=== PATIENT | female | born 1995 | race Caucasian/White ===

== ENCOUNTER 2017-12-31 18:11 | Emergency (ER) | payer OTHER ==
[2017-12-31 18:49] LABS: KETONE, URINE AUTO RFX NEGATIVE (NEGATIVE); LEUKOCYTE ESTERASE UR AUTO RFX NEGATIVE (NEGATIVE); MUCUS, URINE RFX SMALL (NEGATIVE); NITRITE, URINE AUTO RFX NEGATIVE (NEGATIVE); RBC, URINE AUTO RFX 0 /HPF (0-3); SPECIFIC GRAVITY UR AUTO RFX 1.004 (1.002-1.035); SQUAM EPITHELIAL CELL UR AURFX 0 /HPF (0-6); WBC, URINE AUTO RFX 0 /HPF (0-3)
[2017-12-31 19:19] LABS: BASO % 0.3 % (0.0-1.0); EOS # 0.1 10^3/uL (0.0-0.50); EOS % 0.9 % (0.0-3.0); HEMATOCRIT 38.9 % (36.0-47.0); HEMOGLOBIN 12.7 g/dl (12.0-15.5); IMMATURE GRANULOCYTE % 0.2 % (0-3.0); LYMPH # 1.6 10^3/uL (1.5-6.5); LYMPH % 26.7 % (24.0-44.0); MEAN CORPUSCULAR HEMOGLOBIN 28.3 pg (27.0-33.0); MEAN CORPUSCULAR HGB CONC 32.6 g/dl (32.0-36.5); MEAN CORPUSCULAR VOLUME 86.6 fl (80.0-96.0); MONO # 0.4 10^3/uL (0.0-0.8); MONO % 6.2 % (0.0-5.0); NEUTROPHILS # 3.8 10^3/uL (1.8-7.7); NEUTROPHILS % 65.7 % (36.0-66.0); PLATELET COUNT, AUTOMATED 359 10^3/uL (150-450); RED BLOOD COUNT 4.49 10^6/uL (4.00-5.40); RED CELL DISTRIBUTION WIDTH 13.3 % (11.5-14.5); WHITE BLOOD COUNT 5.8 10^3/uL (4.0-10.0)
[2017-12-31 19:43] LABS: ANION GAP 8 MEQ/L (8-16); BLOOD UREA NITROGEN 8 MG/DL (7-18); CALCIUM LEVEL 8.8 MG/DL (8.5-10.1); CARBON DIOXIDE LEVEL 25 MEQ/L (21-32); CHLORIDE LEVEL 107 MEQ/L (98-107); CREATININE FOR GFR 0.61 MG/DL (0.55-1.30); GLUCOSE, FASTING 97 MG/DL (70-100); HCG, SERUM QUANTITATIVE 388 MIU/ML; POTASSIUM SERUM 3.5 MEQ/L (3.5-5.1); SODIUM LEVEL 140 MEQ/L (136-145)
== END 2017-12-31 21:05 | disposition home or self-care (01) ==
LOC: M ED 18:11
DX: R10.2 Pelvic and perineal pain (principal); N83.201 Unspecified ovarian cyst, right side; Z33.1 Pregnant state, incidental; D64.9 Anemia, unspecified; Z87.42 Personal history of other diseases of the female genital tract
CPT/HCPCS: 76801

== ENCOUNTER → 2018-01-03 | Outpatient (CLI) | payer OTHER ==
[2018-01-03 12:28] LABS: HCG, SERUM QUANTITATIVE 950 MIU/ML
== END ==
LOC: M LAB 10:29
DX: R10.2 Pelvic and perineal pain (principal)
CPT/HCPCS: 84702

== ENCOUNTER 2018-01-08 14:06 | Emergency (ER) | payer OTHER ==
[2018-01-08 15:26] LABS: BASO % 0.4 % (0.0-1.0); EOS # 0.1 10^3/uL (0.0-0.50); EOS % 1.3 % (0.0-3.0); HEMOGLOBIN 11.2 g/dl (12.0-15.5); IMMATURE GRANULOCYTE % 0.2 % (0-3.0); LYMPH # 1.6 10^3/uL (1.5-6.5); MEAN CORPUSCULAR VOLUME 87.5 fl (80.0-96.0); MONO # 0.4 10^3/uL (0.0-0.8); MONO % 6.7 % (0.0-5.0); NEUTROPHILS # 3.2 10^3/uL (1.8-7.7); NEUTROPHILS % 61.4 % (36.0-66.0); PLATELET COUNT, AUTOMATED 313 10^3/uL (150-450); RED CELL DISTRIBUTION WIDTH 13.2 % (11.5-14.5); WHITE BLOOD COUNT 5.2 10^3/uL (4.0-10.0)
[2018-01-08 15:32] LABS: KETONE, URINE AUTO RFX NEGATIVE (NEGATIVE); LEUKOCYTE ESTERASE UR AUTO RFX NEGATIVE (NEGATIVE); MUCUS, URINE RFX SMALL (NEGATIVE); NITRITE, URINE AUTO RFX NEGATIVE (NEGATIVE); RBC, URINE AUTO RFX 55 /HPF (0-3); SPECIFIC GRAVITY UR AUTO RFX 1.019 (1.002-1.035); SQUAM EPITHELIAL CELL UR AURFX 2 /HPF (0-6); WBC, URINE AUTO RFX 3 /HPF (0-3)
[2018-01-08 15:53] LABS: HCG, SERUM QUANTITATIVE 541 MIU/ML
== END 2018-01-08 16:48 | disposition home or self-care (01) ==
LOC: M ED 14:06
DX: O20.0 Threatened abortion (principal); Z3A.00 Weeks of gestation of pregnancy not specified; Z87.42 Personal history of other diseases of the female genital tract
CPT/HCPCS: 76801

== ENCOUNTER 2018-05-29 18:12 | Emergency (ER) | payer OTHER ==
[~2018-05-29] VITALS: Ht 160 cm; Wt 85.0 kg
[2018-05-29 18:13] VITALS: BP 125/67
[2018-05-29] MEDS ORDERED: ACETAMINOPHEN 325 MG TAB PO ONE (18:30)
== END 2018-05-29 19:11 | disposition home or self-care (01) ==
LOC: M ED 18:12
DX: S09.90XA Unspecified injury of head, initial encounter (principal); W22.8XXA Striking against or struck by other objects, initial encounter; Y92.018 Other place in single-family (private) house as the place of occurrence of the external cause

== ENCOUNTER 2018-07-12 15:34 | Outpatient (CLI) | payer OTHER ==
[~2018-07-12] VITALS: Ht 162.6 cm; Wt 90.4 kg
[2018-07-12] MEDS ORDERED: PRENTAB9 PO (16:05)
[2018-07-12 16:08] VITALS: BP 127/74
[2018-07-12 17:29] VITALS: BP 127/70
== END 2018-07-12 17:32 | disposition home or self-care (01) ==
LOC: MERGE 15:34 → M LDO 15:34 → EDBD 15:34 → M LDO 17:32
PROVIDERS: ATTEND Obstetrics & Gynecology
DX: O26.893 Other specified pregnancy related conditions, third trimester (principal); R10.30 Lower abdominal pain, unspecified; O62.2 Other uterine inertia; O47.03 False labor before 37 completed weeks of gestation, third trimester; Z3A.36 36 weeks gestation of pregnancy
CPT/HCPCS: 59025; G0378; G0463

== ENCOUNTER 2018-07-24 18:31 | Outpatient (CLI) | payer OTHER ==
[~2018-07-24] VITALS: Ht 162.6 cm; Wt 90.1 kg
[~2018-07-24 18:31] MED LIST: PRENTAB9 PO
[2018-07-24 18:45] VITALS: BP 119/70
[2018-07-24 19:39] VITALS: BP 124/75
--- NOTE | 2018-07-24 19:51 | IPNPDOC ---
Text Note Date of Service The patient was seen on 07/24/18. NOTE 22 yo at 28+1 weeks gestation presented to L&D with the complaint of a single episode of bright red vaginal bleeding that occurred after shopping this afternoon. She noticed the blood when she went to the bathroom. She did not bleed into her underwear. She denies any pain. She also denies any recent intercourse or anything in the vagina. In addition, she reports some whitish vaginal discharge over the last couple weeks. She denies and leakage of fluid. She endorses excellent movement. Chaperoned by L&D RN Vitals - VSS, afebrile, normotensive, non tachycardic General - AAOX3, sitting up in bed, NAD Abdomen - Gravid uterus, no fundal tenderness Pelvic exam - Normal external female genitalia. Speculum inserted into the vagina. White, chunky discharge noted in the vaginal vault. Swab obtained for microscopy. Cervix visualized and normal in appearance. No bleeding or any blood seen anywhere whatsoever. Speculum removed. Digital exam confirmed cervix cl/thick/high. Bedside TAUS - Viable SIUP. Anterior placenta with no evidence of previa. +gross movement. FHR tracing - Cat I with moderate variability, + 10 X 10 accels, no decels. No ctx. Microscopy: Positive for significant amount of yeast. No evidence of bleeding on exam, though significant yeast infection identified. Cervix closed. Reassuring status. Will treat yeast infection with fluconazole (she declined vaginal therapy). Follow up at next appointment as scheduled. Return to care sooner for any urgent concerns. Patient verbalized understanding and all questions were answered. DO SABA Meek Fishbone, I+O Lois WALTER, I+O Vital Signs Date Time Temp Pulse Resp B/P (MAP) Pulse Ox O2 Delivery O2 Flow Rate FiO2 07/24/18 18:45 98.7 102 119/70 (86) FABIO DAVIS DO Jul 24, 2018 19:51
== END 2018-07-24 19:45 | disposition home or self-care (01) ==
LOC: M LDO 18:31
PROVIDERS: ATTEND Obstetrics & Gynecology
DX: O26.853 Spotting complicating pregnancy, third trimester (principal); O23.599 Infection of other part of genital tract in pregnancy, unspecified trimester; B37.3 Candidiasis of vulva and vagina; Z3A.28 28 weeks gestation of pregnancy
CPT/HCPCS: 76815; G0378; G0463

== ENCOUNTER 2018-08-27 15:46 | Outpatient (CLI) | payer OTHER ==
[~2018-08-27] VITALS: Ht 162.6 cm; Wt 93.9 kg
[2018-08-27 16:14] VITALS: BP 134/88
[2018-08-27] MEDS ORDERED: PROSCAP PO (16:20)
[2018-08-27] MEDS ORDERED: FERR325T3 PO (16:20)
[2018-08-27 17:27] VITALS: BP 122/68
[2018-08-27] MEDS ORDERED: FLUCONAZOLE 50MG TABLET PO ONE (18:00)
[2018-08-27 19:40] LABS: CHLAMYDIA DNA AMPLIFICATION NEGATIVE (NEGATIVE); GC DNA AMPLIFICATION NEGATIVE (NEGATIVE)
== END 2018-08-27 18:15 | disposition home or self-care (01) ==
LOC: M LDO 15:46
PROVIDERS: ATTEND Obstetrics & Gynecology
DX: O26.893 Other specified pregnancy related conditions, third trimester (principal); R51 Headache; R10.2 Pelvic and perineal pain; O47.03 False labor before 37 completed weeks of gestation, third trimester; Z3A.33 33 weeks gestation of pregnancy
CPT/HCPCS: 59025; 87086; 87661; G0378; G0463

== ENCOUNTER 2018-09-26 18:09 | Outpatient (CLI) | payer OTHER ==
[~2018-09-26] VITALS: Ht 162.6 cm; Wt 95.3 kg
[~2018-09-26 18:09] MED LIST changes: +FERR325T3 PO; +PROSCAP PO
[2018-09-26 18:32] VITALS: BP 122/56
[2018-09-26 19:15] VITALS: BP 118/77
[2018-09-26] MEDS ORDERED: ACETAMINOPHEN 325 MG TAB PO ONE (19:30)
[2018-09-27] MEDS ORDERED: MAPA500T2 PO (11:17)
== END 2018-09-26 20:40 | disposition home or self-care (01) ==
LOC: M LDO 18:09
PROVIDERS: ATTEND General Practice
DX: O47.1 False labor at or after 37 completed weeks of gestation (principal); O26.893 Other specified pregnancy related conditions, third trimester; R51 Headache; M54.9 Dorsalgia, unspecified; Z3A.37 37 weeks gestation of pregnancy
CPT/HCPCS: 59025; G0378; G0463

== ENCOUNTER 2018-09-27 10:36 | Outpatient (CLI) | payer OTHER ==
[~2018-09-27] VITALS: Ht 162.6 cm; Wt 94.6 kg
[2018-09-27] MEDS ORDERED: MAPA500T2 PO (11:17)
[2018-09-27 11:23] VITALS: BP 125/83
== END 2018-09-27 13:04 | disposition home or self-care (01) ==
LOC: M LDI 10:36 → M LDO 10:36
PROVIDERS: ATTEND Advanced Practice Midwife
DX: O47.1 False labor at or after 37 completed weeks of gestation (principal); Z3A.37 37 weeks gestation of pregnancy

== ENCOUNTER 2018-09-30 17:02 | Inpatient (IN) | payer OTHER ==
[~2018-09-30] VITALS: Ht 162.6 cm; Wt 97.1 kg
[~2018-09-30 17:02] MED LIST changes: +MAPA500T2 PO
[2018-09-30] MEDS ORDERED: VITA100T59 PO (17:36)
[2018-09-30] MEDS ORDERED: AMPICILLIN SOD 2 GM in APPROPRIATE DILUENT 20 ML IV STA (18:14)
--- NOTE | 2018-09-30 18:38 | HPEPDOC ---
Obstetrical History & Physical General Date of Admission Sep 30, 2018 at 18:15 History of Present Illness 22yo at 37w6d by LMP c/w 8wk US c/o leaking clear fluid since 1611 this afternoon. She has had intermittent contractions since Wednesday, they are not any stronger today or since she began leaking fluid. Denies VB. +FM. Denies fevers, urinary symptoms, bowel symptoms. Has baseline low back pain that continues today. Chief Complaint: LOF, term, Group B Positive Information Provided By: Patient Age: 22 : 2 Term: 0 Pre-term: 0 Abortions: 1 Livin Care Care: Good Care Dating Final EDC: Oct 15, 2018 Final EDC for Daily Update: Oct 15, 2018 Final EDC by: LMP Estimated Date of Confinement: Oct 15, 2018 Antepartum Course Diagnos(e)s Obesity Thickened nuchal fold, cffDNA 46XY Gestational anemia on iron GERD Height (inches): 63 Pre- weight (lbs.): 178 Admission Weight (lbs.): 210 Change in Weight (lbs.): 32 Past Medical History Past Obstetrical History : Past Obstetrical History: Primgravida [employer] History: Spontaneous Past Medical History Medical History 3 herniated discs in lower back Migraines Seasonal allegies Surgical History: Rhinoplasty, [place] teeth Family History Significant Family History: No pertinent family hx Social History Marital Status: Family situation: Spouse/partner home Psychosocial History: No pertinent psych hx * Smoker: non-smoker Alcohol: Denies Drugs: denies Imunizations Tdap status: current Influenza Status: declined Allergies Coded Allergies: acetaminophen (Verified Adverse Reaction, Intermediate, NAUSEA/VOMITING, 08/27/18) hydrocodone (Verified Adverse Reaction, Intermediate, NAUSEA/VOMITING, 08/27/18) Medications Scheduled Ascorbic Acid (Vitamin C) 100 Mg Tablet, 1 TAB PO TID Ferrous Sulfate (Ferrous Sulfate) 325 Mg Tablet.dr, 325 MG PO THREE TIMES DAILY No.137/Iron/Folic Acd ( Vitamin Tablet) 1 Each Tablet, 1 TAB PO DAILY Scheduled PRN Acetaminophen (Mapap) 500 Mg Tablet, 325 MG PO Q6HP PRN for PAIN Physical Examination Physical Examination GENERAL: Alert and oriented times three. BREAST: . ABDOMEN: Gravid and non-tender to touch. FETUS: Is vertex VTX by US. EFW 3800g Pertinent Laboratoy Data Blood Type: A+ RBC Antibody Screen: Negative HIV: Negative Hepatitis B: Negative Rapid Plasma Reagin: Nonreactive Rubella: Immune Varicella: Immune Chlamydia/Gonorrhea: Negative Group B Streptococcus: Positive Glucose Tolerance Test: 106 Anatomy Ultrasound Ultrasound Date: Jun 13, 2018 Placenta Location: Anterior Normal Anatomy: Yes Placenta Previa: No Other Ultrasounds [id number] Information EFW 2192g (68%ile) Steroid Therapy Steroid Therapy: No Vaginal Examination Dilation: 2cm Effacement: 80% Station: -3 Cervical Consistency: Medium Cervical Position: Middle Presentation: Cephalic presentation Position: Vertex (occiput) Assessment Heart Rate (FHR): 150 Variability: Moderate Accelerations: Positive Decelerations: None Tocometer Contractions: Yes Frequency: irregular Duration: less than 60 seconds Strength: palpated as mild Multi-drug resistant Organism: No history of MDRO Assessment/Plan Assessment Catie is a 22-year-old 2 para 0 at 37+6 weeks by LMP c/w 8-week ultrasound. Presents to Labor and Delivery c/o LOF, grossly ruptured as of 1611 on Sep. FHT Cat I with irregular contractions. PNC c/b obesity and thickened nuchal fold with cffDNA 46XY. PMH herniated discs in lumbar spine, migraines. Cephalic by US, EFW 3800g. Discussed r/b/a labor induction given premature ROM at term, she agrees to labor induction Admit to L&D Type and screen, CBC Jackson bulb and pitocin for labor induction CEFM LR @125cc/hr Anticipate Plan Admit and orient. Fabrication Supervisor and consent. Diet: . Group B Streptococcus (GBS) [negative]. Labs and intravenous (IV) per unit protocol. Counseled on Pitocin and induction of labor (IOL). Lactated Ringers (LR): Bolus mL, then at mL/hr. Anticipate [normal spontaneous delivery ()]. C-S as appropriate. GAYE PENDLETON MD Sep 30, 2018 18:38
[2018-09-30] MEDS ORDERED: OXYTOCIN DRIP 30 UNITS in APPROPRIATE DILUENT 1 EA IV SCH (18:45)
[2018-09-30] MEDS: LR 1,000 ML IV SCH (19:06)
[2018-09-30] MEDS ORDERED: LACTATED RINGER'S 1000 ML IV PRN (19:30)
[2018-09-30 19:33] VITALS: BP 115/69
[2018-09-30 19:36] LABS: HEMATOCRIT 29.9 % (36.0-47.0); HEMOGLOBIN 9.5 g/dl (12.0-15.5); MEAN CORPUSCULAR HEMOGLOBIN 25.5 pg (27.0-33.0); MEAN CORPUSCULAR HGB CONC 31.8 g/dl (32.0-36.5); MEAN CORPUSCULAR VOLUME 80.2 fl (80.0-96.0); PLATELET COUNT, AUTOMATED 282 10^3/uL (150-450); RED BLOOD COUNT 3.73 10^6/uL (4.00-5.40); WHITE BLOOD COUNT 9.7 10^3/uL (4.0-10.0)
[2018-09-30] MEDS ORDERED: PROMETHAZINE INJ 25 MG/ML VIAL (J2550) IV PRN (21:30)
[2018-09-30] MEDS ORDERED: BUTORPHANOL 2 MG/ML INJ (J0595) IV ONE (21:30)
[2018-09-30] MEDS ORDERED: AMPICILLIN SOD 1 GM in APPROPRIATE DILUENT 10 ML IV SCH (22:15)
[2018-09-30 22:55] VITALS: BP 108/61
[2018-09-30 23:26] VITALS: BP 119/68
[2018-09-30] MEDS: AMPICILLIN SOD 1 GM in D5W MINI-BAG PLUS 50 ML IV SCH (23:27)
[2018-09-30 23:56] VITALS: BP 121/68
[2018-10-01] VITALS (16 sets, daily range): BP systolic 97–129; BP diastolic 55–82
[2018-10-01] MEDS ORDERED: BUTORPHANOL 2 MG/ML INJ (J0595) IV ONE (01:45)
[2018-10-01] MEDS: LR 1,000 ML IV SCH (02:45)
[2018-10-01] MEDS: AMPICILLIN SOD 1 GM in D5W MINI-BAG PLUS 50 ML IV SCH (03:15)
[2018-10-01] MEDS ORDERED: FENTANYL 2MCG/ML ROPIVACAINE 0.2% IN 0.9% NACL 100ML IVBAG As Ordered ONE (06:09)
[2018-10-01 07:08] LABS: CORD GAS ABE A -5.6; CORD GAS ABE V -4.7; CORD GAS HCO3 A 17.8 MEQ/L; CORD GAS HCO3 V 21.1 MEQ/L; CORD GAS O2 SAT A 73.9 %; CORD GAS O2 SAT V 58.3 %; CORD GAS PCO2 A 30.4 mmHg; CORD GAS PCO2 V 41.6 mmHg; CORD GAS PH A 7.386 UNITS; CORD GAS PH V 7.323 UNITS; CORD GAS PO2 A 30.8 mmHg; CORD GAS PO2 V 25.6 mmHg; CORD GAS SBC A 19.4 MEQ/L; CORD GAS SBC V 19.6 MEQ/L; CORD GAS TCO2 A 18.8 MEQ/L; CORD GAS TCO2 V 22.4 MEQ/L
[2018-10-01] MEDS ORDERED: OXYTOCIN DRIP 30 UNITS in APPROPRIATE DILUENT 1 EA IV SCH (07:32)
[2018-10-01] MEDS ORDERED: METHYLERGONOVINE MALEATE 0.2 MG TAB PO PRN (07:45)
[2018-10-01] MEDS ORDERED: RHOGAM 300 MCG (1500 IU) INJ (J2790) IM SCH (07:45)
[2018-10-01] MEDS ORDERED: MEASLES,MUMPS,RUBELLA VACCINE INJ (MMR-II) (90707) SC SCH (07:45)
[2018-10-01] MEDS ORDERED: LIDOCAINE 1% MDV 20ML VIAL INFIL ONE (07:45)
[2018-10-01] MEDS ORDERED: MOM 30ML SUSPENSION UDC PO PRN (07:45)
[2018-10-01] MEDS ORDERED: ANUSOL HC CREAM 30GM TOP PRN (07:45)
[2018-10-01] MEDS ORDERED: ACETAMINOPHEN 500 MG TAB PO PRN (07:45)
[2018-10-01] MEDS ORDERED: IBUPROFEN 800 MG TAB PO PRN (07:45)
[2018-10-01] MEDS ORDERED: IBUPROFEN 600 MG TAB PO PRN (07:45)
[2018-10-01] MEDS ORDERED: ACETAMINOPHEN TAB 650MG DOSE (2X325MG) PO PRN (07:45)
[2018-10-01] MEDS ORDERED: DIBUCAINE 1% OINTMENT 30GM TOP PRN (07:45)
[2018-10-01] MEDS ORDERED: LIDOCAINE 1% MDV INJ 50 ML VIAL As Ordered ONE (07:48)
[2018-10-01] MEDS ORDERED: LIDOCAINE 1% MDV 20ML VIAL As Ordered ONE (07:50)
[2018-10-01] MEDS: PRENATAL VITAMINS CHEWABLE TABLET PO SCH (08:40)
[2018-10-01] MEDS ORDERED: SLF 3 ML SYR IV PRN (09:00)
[2018-10-01] MEDS: DOCUSATE SODIUM 100 MG CAP PO SCH ×2 (09:21→20:58)
[2018-10-01] MEDS: SLF 3 ML SYR IV SCH ×2 (13:23→21:00)
--- NOTE | 2018-10-01 15:46 | DN ---
DATE OF DELIVERY: 10/01/2018 TIME OF : 0654 hours GENDER: Male. SCORES: 3, 9 and 9. WEIGHT: Was 3680 grams or 8 pounds 2 ounces. LACERATIONS: A partial third degree. ANESTHESIA: None. COUNTS: Five laparotomy sponges accounted for prior to and after delivery. Five sharps removed from the delivery field. Cord gases 7.38, 7.32 with base excesses of -5.60 and -4.7, respectively. COMPLICATIONS: At 3 minutes and 50 seconds shoulder dystocia with a left impacted shoulder. DELIVERY NOTE: On September at 0654 hours, this patient a 22-year-old 1, now para 1 had a vaginal delivery of a live born male infant, scores 3, 9 and 9, weight was 3680 grams or 8 pounds 2 ounces. This was a delivery which was complicated by a 3 minute and 50 second shoulder dystocia with a left impacted shoulder. Upon delivery of the head there was a nuchal cord, which was manually reduced, and gentle downward traction was applied for delivery of the left anterior shoulder, which was on unsuccessful. Rajesh maneuver was then employed as well as suprapubic pressure without alleviation of the left impacted shoulder. I then attempted to deliver the right posterior shoulder, but was unable to flex the elbow, at which time the right posterior shoulder was rotated 180 degrees and was then delivered anteriorly followed by delivery of the now left posterior shoulder and corpus. The cord was clamped times two and was cut and infant was taken over to the warmer where nursing staff awaited. Cord gases were then obtained. Placenta was drained and delivered grossly intact. A premixed bag of 500 mL of normal saline with 30 units of Pitocin was then bolused along with uterine massage until the uterus was firm. On inspection, there was a partial third-degree laceration with visualization of the anal sphincter muscle, which was reapproximated with two interrupted sutures of #0 Vicryl. The remainder of the laceration was repaired with #3-0 Vicryl Rapide. On reinspection the cervix, vagina and perineum was grossly intact and hemostatic. Mom and baby were recovering in stable condition. After delivery, I reviewed the incident with the couple and all questions were answered. The couple has decided to name their son
[2018-10-02] MEDS: SLF 3 ML SYR IV SCH ×2 (06:00→14:24)
[2018-10-02 06:04] VITALS: BP 110/73
[2018-10-02] MEDS: PRENATAL VITAMINS CHEWABLE TABLET PO SCH (07:38)
[2018-10-02] MEDS: DOCUSATE SODIUM 100 MG CAP PO SCH ×2 (07:39→20:28)
--- NOTE | 2018-10-02 08:15 | IPNPDOC ---
Progress Note Date of Service: Oct 02, 2018 Day#: 1 Progress Note SUBJECT: Catie is a 22-year-old 2 now Para 1011 status post spontaneous vaginal delivery (c/b [id number] shoulder dystocia) at 38-0/7 weeks' at approximately 0656 hours on [id number] of a male 8 pounds 2 ounces (3680 grams) with post vaginal laceration (partial 3mLL) and repair, doing well day # 1. She has been ambulating, voiding spontaneously without issue and tolerating regular diet. Breast feeding without issue. Reports lochia is minimal . Patient is ambulating well. OBJECTIVE: VITAL SIGNS: Within normal limits, afebrile. Alert and oriented times three. Abdomen: Fundus firm at U-2. Soft, NTTP. Minimal lochia. ASSESSMENT: Doing well on day 1. Vitals within normal limits, afeb rile, hemodynamically stable with no evidence of infection. PLAN: 1. Discharge to home tomorrow. 2. Tylenol and Motrin for pain. 3. Encourage breast feeding and ambulation. 4. Planning OCPs for contraception. 5. Routine PP visit in 6 weeks in clinic. MD Patrica VS, I&O, 24H, Fishbone Vital Signs/I&O Vital Signs Date Time Temp Pulse Resp B/P (MAP) Pulse Ox O2 Delivery O2 Flow Rate FiO2 10/02/18 06:04 97.9 106 18 110/73 (85) I&O- Last 24 Hours up to 6 AM 10/02/18 06:00 Intake Total 50 ml Output Total 1300 ml Balance -1250 ml GAYE PENDLETON MD Oct 02, 2018 08:15
[2018-10-02 18:39] VITALS: BP 110/66
[2018-10-03 05:44] VITALS: BP 116/64
[2018-10-03] MEDS: PRENATAL VITAMINS CHEWABLE TABLET PO SCH (09:55)
[2018-10-03] MEDS: DOCUSATE SODIUM 100 MG CAP PO SCH (09:55)
[2018-10-03] MEDS ORDERED: DIBU10OI TOP (12:51)
[2018-10-03] MEDS ORDERED: IBUP80TA PO (12:51)
[2018-10-03] MEDS ORDERED: PROC1CRE5 TOP (12:51)
[2018-10-03] MEDS ORDERED: COLA100C5 PO (12:51)
[2018-10-03] MEDS ORDERED: ACET-683 PO (12:51)
--- NOTE | 2018-10-04 10:07 | DSES ---
DATE OF ADMISSION: 09/30/2018 DATE OF DISCHARGE: 10/03/2018 22-year-old 2 now para 1 admitted with contractions, spontaneous rupture of membranes at 37 at 6 weeks of gestation. She had a live male , spontaneous vaginal delivery with a shoulder dystocia of the left weighing 8 pounds 2 ounces, 3680 grams, of 3, 9, and 9. Arterial pH 7.38, base excess -5.6, venous pH 7.32, base excess -4.7. Her risk factors are that she suffers from migraine. She was GBS positive, appropriately treated. She has three herniated discs and she had a third degree, which was repaired. On discharge, we discussed phlebitis, cystitis, mastitis, endometritis and cellulitis, diet, exercise pain management, perineal breast and wound care. On discharge blood pressure 116/64, respirations 18, pulse was 100 and temperature was 98.5. Her admitting hemoglobin 9.5, hematocrit 29.9 and platelets were 282. The rest examination is unremarkable. She is normocephalic, atraumatic. Neck: Full range of motion. Pupils equal and reactive to light. Distal pulses symmetric. No evidence of deep venous thrombosis (DVT), pulmonary embolus (PE) or superficial phlebitis. Chest is clear bilaterally bases. No wheezes or rhonchi. Abdomen: Soft uterus 2 below. Lochia is moderate. Four-quadrant bowel sounds are noted. Perineum is healing and there is no evidence of excessive discharge from her third degree. She has no rashes, lesions or pruritus. No arthralgia, myalgia. No complaint joint pain. No complaint cough, shortness of breath or dyspnea on exertion. No bleeding. Neuro complete. No frequency. No nausea, vomiting, diarrhea or constipation. No diabetes the rest examination unremarkable. She has good support systems at home. Presently, breast-feeding doing well. Anticipated discharge and followup in 6 weeks' time for checkup at [facility] ([facility]).
== END 2018-10-03 14:25 | disposition home or self-care (01) | DRG 768 ==
LOC: M LDO 17:02 → M LDI 18:15 → M OBS 10-01 13:53
PROVIDERS: ADMIT General Practice; ATTEND Obstetrics & Gynecology
PROC: 10E0XZZ Delivery of Products of Conception, External Approach (ICD-10-PCS; principal; 2018-10-01)
PROC: 0DQR0ZZ Repair Anal Sphincter, Open Approach (ICD-10-PCS; 2018-10-01)
DX: O66.0 Obstructed labor due to shoulder dystocia (principal); Z37.0 Single live birth; O70.21 Third degree perineal laceration during delivery, IIIa; Z3A.37 37 weeks gestation of pregnancy; Z88.5 Allergy status to narcotic agent; Z88.8 Allergy status to other drugs, medicaments and biological substances; E66.9 Obesity, unspecified; O99.214 Obesity complicating childbirth

== ENCOUNTER 2018-10-05 16:46 | Emergency (ER) | payer OTHER ==
[~2018-10-05] VITALS: Ht 162.6 cm; Wt 88.3 kg
[~2018-10-05 16:46] MED LIST changes: +ACET-683 PO; +COLA100C5 PO; +DIBU10OI TOP; +IBUP80TA PO; +PROC1CRE5 TOP; +VITA100T59 PO
[2018-10-05 18:59] LABS: BASO % 0.2 % (0.0-1.0); EOS # 0.2 10^3/uL (0.0-0.50); EOS % 2.6 % (0.0-3.0); HEMATOCRIT 32.7 % (36.0-47.0); HEMOGLOBIN 10.1 g/dl (12.0-15.5); LYMPH % 23.3 % (24.0-44.0); MEAN CORPUSCULAR HEMOGLOBIN 25.4 pg (27.0-33.0); MEAN CORPUSCULAR HGB CONC 30.9 g/dl (32.0-36.5); MEAN CORPUSCULAR VOLUME 82.4 fl (80.0-96.0); MONO # 0.5 10^3/uL (0.0-0.8); MONO % 5.7 % (0.0-5.0); NEUTROPHILS # 5.9 10^3/uL (1.8-7.7); NEUTROPHILS % 67.7 % (36.0-66.0); PLATELET COUNT, AUTOMATED 410 10^3/uL (150-450); RED BLOOD COUNT 3.97 10^6/uL (4.00-5.40); WHITE BLOOD COUNT 8.7 10^3/uL (4.0-10.0)
[2018-10-05 19:13] LABS: BLOOD UREA NITROGEN 9 MG/DL (7-18); CALCIUM LEVEL 9.4 MG/DL (8.5-10.1); CARBON DIOXIDE LEVEL 27 MEQ/L (21-32); CHLORIDE LEVEL 106 MEQ/L (98-107); CREATININE FOR GFR 0.58 MG/DL (0.55-1.30); GLUCOSE, FASTING 90 MG/DL (70-100); POTASSIUM SERUM 3.9 MEQ/L (3.5-5.1); SODIUM LEVEL 140 MEQ/L (136-145)
[2018-10-05 19:34] LABS: AMORPHOUS SEDIMENT SMALL (NEGATIVE); APPEARANCE, URINE CLOUDY (CLEAR); BACTERIA, URINE AUTO NEGATIVE (NEGATIVE); BILIRUBIN, URINE AUTO NEGATIVE (NEGATIVE); BLOOD, URINE BLOOD 3+ (NEGATIVE); COLOR, URINE RED (YELLOW); GLUCOSE, URINE (UA) AUTO NEGATIVE (NEGATIVE); KETONE, URINE AUTO TRACE mg/dL (NEGATIVE); LEUKOCYTE ESTERASE, URINE AUTO 2+ (NEGATIVE); NITRITE, URINE AUTO NEGATIVE (NEGATIVE); PROTEIN, URINE AUTO 2+ mg/dL (NEGATIVE); RBC, URINE AUTO TNTC /HPF (0-3); SPECIFIC GRAVITY URINE AUTO 1.012 (1.002-1.035); SQUAMOUS EPITHELIAL CELL UR AU 0 /HPF (0-6); TRANSITIONAL EPITHELIAL AUTO 14 /HPF; UROBILINOGEN, URINE AUTO 0.2 mg/dL (0.0-2.0); WBC, URINE AUTO TNTC /HPF (0-3)
[2018-10-05 19:51] VITALS: BP 124/69
[2018-10-05] MEDS ORDERED: AUGM500T34 PO (20:00)
[2018-10-05] MEDS ORDERED: AUGMENTIN 500 MG TAB PO ONE (20:15)
== END 2018-10-05 20:28 | disposition home or self-care (01) ==
LOC: M ED 16:46
DX: O86.20 Urinary tract infection following delivery, unspecified (principal); O86.4 Pyrexia of unknown origin following delivery; D64.9 Anemia, unspecified; R11.2 Nausea with vomiting, unspecified; R19.7 Diarrhea, unspecified; Z79.899 Other long term (current) drug therapy; Z88.6 Allergy status to analgesic agent; Z88.5 Allergy status to narcotic agent

== ENCOUNTER 2018-11-25 18:05 | Emergency (ER) | payer OTHER ==
[~2018-11-25] VITALS: Ht 162.6 cm; Wt 84.9 kg
[~2018-11-25 18:05] MED LIST changes: +AUGM500T34 PO
[2018-11-25] MEDS ORDERED: IRON65TA2 PO (18:10)
[2018-11-25] MEDS ORDERED: ACET1TAB55 PO (18:28)
[2018-11-25] MEDS ORDERED: ACETAMINOPHEN 325 MG TAB PO ONE (18:45)
[2018-11-25] MEDS ORDERED: IBUPROFEN 800 MG TAB PO ONE (19:15)
[2018-11-25 19:20] LABS: INFLUENZA A AMPLIFICATION NEGATIVE (NEGATIVE); INFLUENZA B AMPLIFICATION NEGATIVE (NEGATIVE)
[2018-11-25 21:09] VITALS: BP 126/74
--- NOTE | 2018-11-26 09:51 | REP ---
PA and lateral chest: There are no comparisons. The lung becker are clear. The cardiac size is normal. The yesika, mediastinum, and skeletal structures are unremarkable. Impression: Negative PA and lateral chest. Electronically Signed by Manny Trinh MD 11/26/2018 09:43 A
== END 2018-11-25 21:10 | disposition home or self-care (01) ==
LOC: M ED 18:05
DX: R50.9 Fever, unspecified (principal); R42 Dizziness and giddiness; R51 Headache; Z88.5 Allergy status to narcotic agent; Z79.899 Other long term (current) drug therapy

== ENCOUNTER 2019-05-15 02:41 | Emergency (ER) | payer OTHER ==
[~2019-05-15] VITALS: Ht 157.5 cm; Wt 83.8 kg
[~2019-05-15 02:41] MED LIST changes: +ACET1TAB55 PO; +IRON65TA2 PO
[2019-05-15] MEDS ORDERED: LEVORA-28 (02:54)
[2019-05-15] MEDS ORDERED: BRONCHW PO (02:54)
[2019-05-15 03:49] LABS: BASO % 0.4 % (0.0-1.0); EOS # 0.1 10^3/uL (0.0-0.5); EOS % 1.1 % (0.0-3.0); HEMATOCRIT 37.3 % (36.0-47.0); HEMOGLOBIN 11.7 g/dl (12.0-15.5); LYMPH # 2.7 10^3/uL (1.5-5.0); LYMPH % 37.1 % (24.0-44.0); MEAN CORPUSCULAR HEMOGLOBIN 24.5 pg (27.0-33.0); MEAN CORPUSCULAR HGB CONC 31.4 g/dl (32.0-36.5); MEAN CORPUSCULAR VOLUME 78.2 fl (80.0-96.0); MONO # 0.5 10^3/uL (0.0-0.8); MONO % 7.3 % (0.0-5.0); NEUTROPHILS # 3.9 10^3/uL (1.5-8.5); PLATELET COUNT, AUTOMATED 356 10^3/uL (150-450); RED BLOOD COUNT 4.77 10^6/uL (4.00-5.40); WHITE BLOOD COUNT 7.3 10^3/uL (4.0-10.0)
[2019-05-15 04:31] LABS: HCG, SERUM QUALITATIVE NEGATIVE (NEGATIVE)
[2019-05-15 04:33] LABS: ALBUMIN 3.6 GM/DL (3.2-5.2); ALT/SGPT 46 U/L (12-78); BILIRUBIN,DIRECT < 0.1 MG/DL (0.0-0.2); BILIRUBIN,TOTAL 0.2 MG/DL (0.2-1.0); BLOOD UREA NITROGEN 15 MG/DL (7-18); CALCIUM LEVEL 8.5 MG/DL (8.5-10.1); CARBON DIOXIDE LEVEL 26 MEQ/L (21-32); CHLORIDE LEVEL 107 MEQ/L (98-107); CREATININE FOR GFR 0.61 MG/DL (0.55-1.30); GLOMERULAR FILTRATION RATE > 60.0 (>60); GLUCOSE, FASTING 97 MG/DL (70-100); LIPASE 137 U/L (73-393); POTASSIUM SERUM 3.8 MEQ/L (3.5-5.1); SODIUM LEVEL 139 MEQ/L (136-145); TOTAL PROTEIN 7.4 GM/DL (6.4-8.2)
[2019-05-15 06:07] VITALS: BP 136/90
--- NOTE | 2019-05-15 08:20 | REP ---
Clinical: Fever . Comparison: 11/25/2018 . Findings: The mediastinum and cardiac silhouette are stable and within normal limits for portable technique. The lung becker are clear without acute consolidation, effusion, or pneumothorax. Skeletal structures are intact. Impression: No acute cardiopulmonary process appreciated. Electronically Signed by Bebo Cummings MD 05/15/2019 08:12 A
== END 2019-05-15 06:09 | disposition home or self-care (01) ==
LOC: M ED 02:41
DX: J06.9 Acute upper respiratory infection, unspecified (principal); R50.9 Fever, unspecified; G43.909 Migraine, unspecified, not intractable, without status migrainosus; D33.9 Benign neoplasm of central nervous system, unspecified; Z88.5 Allergy status to narcotic agent; Z79.899 Other long term (current) drug therapy
CPT/HCPCS: 36415; 71045; 80048; 80076; 81001; 83690; 84703; 85025; 87486; 87581; 87633; 87798; 99284; U0002